=== PATIENT | female | born 1955 | race American Indian/Alaskan Native ===

== ENCOUNTER 2018-02-15 16:30 | Emergency (ER) | payer OTHER ==
[2018-02-15 17:04] VITALS: O2SAT 98
--- NOTE | 2018-02-15 18:37 | C.PDOC ---
History Of Present Illness Pt states that she was going to sit on a chair when it folded and fell backwards. She c/o left anterior thigh pain. Denies LOC or head injury. - HPI Time Seen by Provider: 02/15/18 16:57 Chief Complaint (Nursing): Lower Extremity Problem/Injury History Per: Patient, Family Injury Occurred (Timing): Just Before Arrival Location Of Injury: Left: Thigh Severity: Moderate Additional History Per: Prior Records Past Medical History Reviewed: Historical Data, Nursing Documentation, Vital Signs Vital Signs: Last Vital Signs Temp 98.8 F 02/15/18 16:47 Pulse 91 H 02/15/18 16:47 Resp 20 02/15/18 16:47 BP 166/90 H 02/15/18 16:47 Pulse Ox 98 02/15/18 18:45 - Medical History PMH: Hyperlipidemia Surgical History: No Surg Hx Family History: States: Unknown Family Hx - Social History Hx Alcohol Use: No Hx Substance Use: No Review Of Systems Except As Marked, All Systems Reviewed And Found Negative. Constitutional: Negative for: Fever, Weakness Cardiovascular: Negative for: Chest Pain Respiratory: Negative for: Shortness of Breath Gastrointestinal: Negative for: Vomiting, Abdominal Pain Musculoskeletal: Negative for: Neck Pain, Back Pain, Leg Pain, Foot Pain Skin: Positive for: Bruising Neurological: Negative for: Weakness, Numbness Physical Exam - Physical Exam Appears: Non-toxic, No Acute Distress Skin: Warm, Dry, Ecchymosis (on left anterior lower thigh) Head: Atraumatic, Normacephalic Eye(s): bilateral: PERRL, EOMI Neck: Normal ROM, No Midline Cervical Tenderness, No Step Off Deformity, Supple Chest: Symmetrical, No Deformity Gastrointestinal/Abdominal: Soft, No Tenderness Back: No Vertebral Tenderness Extremity: Tenderness (left lower anterior thigh), Swelling (left lower thigh) Pulses: Left Dorsalis Pedis: Normal Neurological/Psych: Oriented x3, Normal Motor, Normal Sensation ED Course And Treatment O2 Sat by Pulse Oximetry: 98 Pulse Ox Interpretation: Normal - Other Rad Left femur x-rays X-Ray: Interpreted by Me, Viewed By Me Interpretation: No acute fx. Progress Note: A knee immobilizer was placed on LLE and pt was given a walker. Reassessment Condition: Improved Disposition Counseled Patient/Family Regarding: Studies Performed, Diagnosis, Need For Followup, Rx Given - Disposition Referrals: Tate Araujo III, MD [Staff Provider] - Disposition: HOME/ ROUTINE Disposition Time: 19:09 Condition: STABLE Additional Instructions: Keep your left lower extremity in immobilizer until your follow up with an orthopedics nurse (within 1 week). Use the Walker to stay off left leg. Return to the ER if you develop severe pain, weakness, numbness, worsening of symptoms or if you have any other concerns. Prescriptions: Naproxen [Naprosyn] 1 tab PO BID PRN #20 tab PRN Reason: Pain Instructions: Knee Immobilizer (DC) Forms: [employer] ([place] [employer]) - Clinical Impression Clinical Impression: Injury of thigh, left
[2018-02-15 19:31] VITALS: BP 136/72; PULSE 86; RESP 18; TEMP 98
--- NOTE | 2018-02-16 09:33 | RAD ---
Date of service: 02/15/2018 PROCEDURE: Left Femur Radiographs. HISTORY: thigh pain/tenderness s/p fall today COMPARISON: None. TECHNIQUE: AP and Lateral Radiographs of the left femur. FINDINGS: FEMUR: Normal. No fracture. SOFT TISSUES: Normal. OTHER FINDINGS: None. IMPRESSION: Unremarkable radiographs of the left femur.
== END 2018-02-15 19:31 | disposition home or self-care (01) ==
LOC: C.ER 16:30
DX: S79.922A Unspecified injury of left thigh, initial encounter (principal); W07.XXXA Fall from chair, initial encounter
CPT/HCPCS: 73552; 96372; 99284; J1885